=== PATIENT | male | born 1995 | race African-American/Black ===

== ENCOUNTER 2018-01-03 21:58 | Emergency (ER) | payer MEDICAID ==
[~2018-01-03] VITALS: Ht 180.3 cm; Wt 71.9 kg
[2018-01-03 22:12] VITALS: BP 105/58
[2018-01-03 22:34] LABS: Basophils # (auto) 0 uL; Eosinophils # (auto) 0.5 uL; Eosinophils % (auto) 3.2 % (0.0-7.0); Hematocrit 40.4 % (41.0-53.0); Hemoglobin 13.9 g/dL (13.5-17.5); Lymphocytes # (auto) 0.9 uL; Lymphocytes % (auto) 5.9 % (10.0-50.0); Mean Corpuscular Hemoglobin 32.1 pg (28.0-32.0); Mean Corpuscular Hgb Conc. 34.5 g/dL (32.0-36.0); Mean Corpuscular Volume 92.9 fL (80.0-100.0); Monocytes # (auto) 1.3 uL; Neutrophils # (auto) 12.3 uL; Neutrophils % (auto) 81.9 % (37.0-80.0); Nucleated Red Blood Cells % 0.1 %; Platelet Count (auto) 205 10^3/uL (140-450); Red Blood Cells 4.35 10^6/uL (4.5-5.90); Red Cell Distribution Width 13.4 % (11.8-14.3)
[2018-01-03 22:49] LABS: Albumin 2.5 g/dL (3.4-5.0); Calcium 8.6 mg/dL (8.5-10.1); INR 0.97 (0.9-1.15); Partial Thromboplastin Time 29.6 sec (22.64-33.71); Potassium 3.9 mmol/L (3.5-5.1); Prothrombin Time 10.6 sec (9.37-12.3)
[2018-01-03 22:51] LABS: Bilirubin, Total 0.2 mg/dL (0.2-1.0); Total Protein 7.3 g/dL (6.4-8.2)
== END 2018-01-04 04:14 | disposition left against medical advice (07) ==
LOC: ER 21:58
DX: M79.601 Pain in right arm (principal); Z53.21 Procedure and treatment not carried out due to patient leaving prior to being seen by health care provider
CPT/HCPCS: 36415; 73200; 80053; 85025; 85610; 85730